=== PATIENT | female | born 1945 | race Caucasian/White ===

== ENCOUNTER 2019-03-30 12:17 | Observation (INO) | payer MEDICARE ==
--- NOTE | 2019-03-30 12:27 | ERPHSYRPT ---
- History of Present Illness Time Seen by Provider: 03/30/19 12:20 Source: patient, EMS Exam Limitations: no limitations Physician History: 73 y/o obese white female resident of [facility] with h/o dm, copd, chf, cva and cadz presents via ems with hypotension, gross hematuria, and black diarrhea stools. upon arrival from ems, pt awake, alert and oriented and pleasant. complains only of back pain. pt denies cp, denies soa and denies of abd pain. pts sbp upon arrival here 110 and HR 90s. pt on daily iron supplementation Timing/Duration: today Severity: moderate Associated Symptoms: No nausea, No vomiting, No abdominal pain, No shortness of breath, No chest pain Allergies/Adverse Reactions: meperidine HCl [From [employer]] Adverse Reaction (Mild, Verified 03/30/19 12:37) DOESN'T WORK FOR ME Home Medications: Metoprolol Tartrate 50 mg [Lopressor 50 MG] 100 mg PO BID 10/11/12 [ History] Nitroglycerin 0.4 mg Tablet [Nitrostat 0.4 MG Tablet] 0.4 mg SL Q5MIN PRN MR X 3 05/15/13 [History] Famotidine [Pepcid] 40 mg PO BID 06/01/13 [History] Ferrous Sulfate 325 mg [Feosol 325 mg] 325 mg PO DAILY 06/17/15 [History] Fluticasone/Vilanterol [Breo Ellipta 100-25 Mcg INH] 1 each IH DAILY 06/17/15 [ History] Magnesium Oxide 400 mg [Mag-Ox 400] 400 mg PO BID 06/17/15 [History] Calcium No.1/D3/B6/FA/B12/Aloe [Vitamin D3-Aloe 1,000 Unit Tab] 1 ea DAILY 03/30 [History] Hx Tetanus, Diphtheria Vaccination/Date Given: No Hx Influenza Vaccination/Date Given: Yes Hx Pneumococcal Vaccination/Date Given: No - Review of Systems Constitutional: No Symptoms Eyes: No Symptoms Ears, Nose, & Throat: No Symptoms Respiratory: No Symptoms Cardiac: No Symptoms Abdominal/Gastrointestinal: Diarrhea Genitourinary Symptoms: Hematuria Musculoskeletal: No Symptoms Skin: No Symptoms Neurological: No Symptoms Psychological: No Symptoms Endocrine: No Symptoms Hematologic/Lymphatic: No Symptoms Immunological/Allergic: No Symptoms All Other Systems: Reviewed and Negative - Past Medical History Pertinent Past Medical History: Yes Neurological History: Peripheral Neuropathy, Stroke ENT History: Cataracts Cardiac History: Congestive Heart Failure Respiratory History: CHF, COPD Endocrine Medical History: Diabetes Type II Musculoskeletal History: Arthritis GI Medical History: Other History: No Pertinent History Psycho-Social History: Anxiety, Depression Female Reproductive Disorders: No Pertinent History Other Medical History: anemia - Past Surgical History Past Surgical History: Yes Neuro Surgical History: No Pertinent History Cardiac: CABG, Cardiac Catheterization, Cardiac Stent Respiratory: No Pertinent History Gastrointestinal: Appendectomy, Cholecystectomy, Hemorrhoidectomy Genitourinary: No Pertinent History Musculoskeletal: Orthopedic Surgery Female Surgical History: Hysterectomy Other Surgical History: abd,aortic w/ mesh filter, femoral bipass,left arm and shoulder surgeries, - Social History Smoking Status: Former smoker How long have you smoked: 25 YEARS Exposure to second hand smoke: Yes Alcohol Use: None Drug Use: none Patient Lives Alone: No Significant Family History: heart disease, diabetes, hypertension - Nursing Vital Signs Nursing Vital Signs: Initial Vital Signs Temperature 98.0 F 03/30/19 12:19 Pulse Rate 110 H 03/30/19 12:19 Respiratory Rate 16 03/30/19 12:19 Blood Pressure 110/71 03/30/19 12:19 O2 Sat by Pulse Oximetry 97 03/30/19 12:19 Pain Scale Pain Intensity 6 - Physical Exam General Appearance: no apparent distress, alert, obese Eye Exam: PERRL/EOMI, eyes nml inspection Ears, Nose, Throat Exam: normal ENT inspection, moist mucous membranes Neck Exam: normal inspection, non-tender, supple, full range of motion Respiratory Exam: normal breath sounds, lungs clear, airway intact, No chest tenderness, No respiratory distress Cardiovascular Exam: regular rate/rhythm, normal heart sounds, normal peripheral pulses Gastrointestinal/Abdomen Exam: soft, normal bowel sounds, No tenderness, No guarding Pelvic Exam: not done Rectal Exam: not done Back Exam: normal inspection, normal range of motion, No CVA tenderness, No vertebral tenderness Extremity Exam: normal inspection, normal range of motion, pelvis stable Neurologic Exam: alert, oriented x 3, cooperative, 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 nml as tested Skin Exam: normal color, warm, dry Lymphatic Exam: No adenopathy SpO2 Interpretation: normal SpO2: 97 O2 Delivery: Room Air - Course Nursing assessment & vital signs reviewed: Yes EKG Interpreted by Me: RATE (95), A-fib, NORMAL AXIS, NORMAL INTERVALS, NORMAL QRS, Non-specific ST Changes, Other (when compared to ekg dated 06/17/15, new onset afib/flutter) Ordered Tests: Active Orders 24 hr Category Date Time Status Catheter-Clinton Eldridge STAT Care 03/30/19 12:34 Active EKG-ER Only STAT Care 03/30/19 12:34 Active IV Insertion STAT Care 03/30/19 12:34 Active ABDOMEN AND PELVIS W/0 CONTRAS [CT] Stat Exams 03/30/19 12:35 Completed CHEST 1 VIEW (PORTABLE) Stat Exams 03/30/19 12:34 Completed AMYLASE Stat Lab 03/30/19 12:52 Completed BLOOD CULTURE Stat Lab 03/30/19 12:45 Received CBC W DIFF Stat Lab 03/30/19 12:52 Completed CMP Stat Lab 03/30/19 12:52 Completed CULTURE,URINE Stat Lab 03/30/19 12:44 Received LIPASE Stat Lab 03/30/19 12:52 Completed Lactic Acid Stat Lab 03/30/19 12:40 Completed TROPONIN Q3H Lab 03/30/19 12:52 Completed TROPONIN Q3H Lab 03/30/19 15:45 Ordered TROPONIN Q3H Lab 03/30/19 18:45 Ordered TROPONIN Q3H Lab 03/30/19 21:45 Ordered TROPONIN Q3H Lab 03/31/19 00:45 Ordered UA W/RFX UR CULTURE Stat Lab 03/30/19 12:52 Completed Medication Summary Discontinued Medications Generic Name Dose Route Start Last Admin Trade Name Madonna PRN Reason Stop Dose Admin Sodium Chloride 1,000 mls @ 999 mls/hr 03/30/19 12:34 03/30/19 14:21 Sodium Chloride 0.9% 1000 Ml IV 03/30/19 13:34 Infused .Q1H1M STA Infusion Sodium Chloride Confirm 03/30/19 13:22 Sodium Chloride 0.9% 1000 Ml Administered 03/30/19 13:23 Dose 1,000 mls @ ud .ROUTE .STK-MED ONE Ceftriaxone Sodium/Dextrose 1 g in 50 mls @ 100 mls/hr 03/30/19 13:28 14:23 Rocephin 1 Gm-D5w 50 Ml Bag IV 03/30/19 13:57 Infused STAT STA Infusion Ceftriaxone Sodium/Dextrose Confirm 03/30/19 13:30 Rocephin 1 Gm-D5w 50 Ml Bag Administered 03/30/19 13:31 Dose 1 g in 50 mls @ ud IV .STK-MED ONE Ondansetron HCl 4 mg 03/30/19 12:34 03/30/19 13:25 Zofran 4 Mg/2 Ml Vial IV 03/30/19 12:35 4 mg STAT ONE Administration Ondansetron HCl Confirm 03/30/19 13:22 Zofran 4 Mg/2 Ml Vial Administered 03/30/19 13:23 Dose 4 mg .ROUTE .STK-MED ONE Lab/Rad Data: Laboratory Result Diagrams 03/30/19 12:52 03/30/19 12:52 Laboratory Results 03/30/19 03/30/19 03/30/19 Range/Units 12:52 12:52 12:52 WBC (4.0-10.5) K/mm3 RBC (4.1-5.4) M/mm3 Hgb (12.0-16.0) gm/dl Hct (35-47) % MCV (78-100) fl MCH (26-32) pg MCHC (32-36) g/dl RDW (11.5-14.0) % Plt Count (150-450) K/mm3 MPV (7.5-11.0) fl Gran % (36.0-66.0) % Eos # (Auto) (0-0.5) Absolute Lymphs (auto) (1.0-4.6) Absolute Monos (auto) (0.0-1.3) Lymphocytes % (24.0-44.0) % Monocytes % (0.0-12.0) % Eosinophils % (0.00-5.0) % Basophils % (0.0-0.4) % Absolute Granulocytes (1.4-6.9) Basophils # (0-0.4) Sodium (137-145) mmol/L Potassium (3.5-5.1) mmol/L Chloride (98-107) mmol/L Carbon Dioxide (22-30) mmol/L Anion Gap (5-15) MEQ/L BUN (7-17) mg/dL Creatinine (0.52-1.04) mg/dL Estimated GFR ML/MIN Glucose (74-106) mg/dL Lactic Acid (0.4-2.0) Calcium (8.4-10.2) mg/dL Total Bilirubin (0.2-1.3) mg/dL AST (14-36) U/L ALT (0-35) U/L Alkaline Phosphatase (38-126) U/L Troponin I < 0.012 (0.000-0.034) ng/mL Serum Total Protein (6.3-8.2) g/dL Albumin (3.5-5.0) g/dL Amylase (30-110) U/L Lipase (23-300) U/L Urine Color RED (YELLOW) Urine Appearance SLIGHTLY CLOUDY (CLEAR) Urine pH 8.0 (5-6) Ur Specific [employer] 1.004 (1.005-1.025) Urine Protein 100 (Negative) Urine Ketones NEGATIVE (NEGATIVE) Urine Blood MODERATE (0-5) Daniel/ul Urine Nitrite NEGATIVE (NEGATIVE) Urine Bilirubin NEGATIVE (NEGATIVE) Urine Urobilinogen NEGATIVE (0-1) mg/dL Ur Leukocyte Esterase MODERATE (NEGATIVE) Urine WBC (Auto) 26-50 (0-5) /HPF Urine RBC (Auto) 16-25 (0-2) /HPF U Epithel Cells (Auto) NONE (FEW) /HPF Urine Bacteria (Auto) MODERATE (NEGATIVE) /HPF Urine Culture Reflexed ORDERED SEPARATELY (NO) Urine Glucose 50 (NEGATIVE) mg/dL ABO Group O Rh Factor POSITIVE Antibody Screen NEGATIVE (NEGATIVE) 03/30/19 03/30/19 03/30/19 Range/Units 12:52 12:52 12:40 WBC 11.5 H (4.0-10.5) K/mm3 RBC 3.80 L (4.1-5.4) M/mm3 Hgb 11.3 L (12.0-16.0) gm/dl Hct 37.5 (35-47) % MCV 98.7 (78-100) fl MCH 29.7 (26-32) pg MCHC 30.1 L (32-36) g/dl RDW 13.0 (11.5-14.0) % Plt Count 193 (150-450) K/mm3 MPV 10.4 (7.5-11.0) fl Gran % 61.2 (36.0-66.0) % Eos # (Auto) 0.34 (0-0.5) Absolute Lymphs (auto) 2.74 (1.0-4.6) Absolute Monos (auto) 1.35 H (0.0-1.3) Lymphocytes % 23.8 L (24.0-44.0) % Monocytes % 11.7 (0.0-12.0) % Eosinophils % 3.0 (0.00-5.0) % Basophils % 0.3 (0.0-0.4) % Absolute Granulocytes 7.05 H (1.4-6.9) Basophils # 0.03 (0-0.4) Sodium 138 (137-145) mmol/L Potassium 4.0 (3.5-5.1) mmol/L Chloride 96 L (98-107) mmol/L Carbon Dioxide 37 H (22-30) mmol/L Anion Gap 8.5 (5-15) MEQ/L BUN 21 H (7-17) mg/dL Creatinine 1.04 (0.52-1.04) mg/dL Estimated GFR 55.2 ML/MIN Glucose 137 H (74-106) mg/dL Lactic Acid 1.0 (0.4-2.0) Calcium 8.6 (8.4-10.2) mg/dL Total Bilirubin 0.50 (0.2-1.3) mg/dL AST 16 (14-36) U/L ALT 9 (0-35) U/L Alkaline Phosphatase 57 (38-126) U/L Troponin I (0.000-0.034) ng/mL Serum Total Protein 6.6 (6.3-8.2) g/dL Albumin 3.3 L (3.5-5.0) g/dL Amylase 49 (30-110) U/L Lipase 57 (23-300) U/L Urine Color (YELLOW) Urine Appearance (CLEAR) Urine pH (5-6) Ur Specific [employer] (1.005-1.025) Urine Protein (Negative) Urine Ketones (NEGATIVE) Urine Blood (0-5) Daniel/ul Urine Nitrite (NEGATIVE) Urine Bilirubin (NEGATIVE) Urine Urobilinogen (0-1) mg/dL Ur Leukocyte Esterase (NEGATIVE) Urine WBC (Auto) (0-5) /HPF Urine RBC (Auto) (0-2) /HPF U Epithel Cells (Auto) (FEW) /HPF Urine Bacteria (Auto) (NEGATIVE) /HPF Urine Culture Reflexed (NO) Urine Glucose (NEGATIVE) mg/dL ABO Group Rh Factor Antibody Screen (NEGATIVE) - Progress Progress: improved, re-examined Progress Note: 03/30/19 14:24 cxr-no acute process ct abd/pelvis-?right lower lobe atelectasis vs infiltrate Counseled pt/family regarding: lab results, diagnosis, need for follow-up, rad results - Departure Departure Disposition: Observation Clinical Impression: Hematuria, Cystitis, Right pulmonary infiltrate on CXR, Diarrhea Condition: Stable Critical Care Time: No Referrals: JACLYN VAUGHN [Primary Care Provider] -
[2019-03-30] MEDS ORDERED: Sodium Chloride 0.9% 1000 ML 1,000 ML IV STA (12:34)
[2019-03-30] MEDS ORDERED: Zofran 4 MG/2 ML VIAL IV ONE (12:34)
[2019-03-30 13:02] LABS: Absolute Neutrophil Ct (ANC) 7.05 (1.4-6.9); BASOPHIL % 0.3 % (0.0-0.4); Basophil (Absolute #) 0.03 (0-0.4); Eosinophil (Absolute #) 0.34 (0-0.5); Hematocrit 37.5 % (35-47); Hemoglobin 11.3 gm/dl (12.0-16.0); Lymphocyte (Absolute #) 2.74 (1.0-4.6); Lymphocytes % 23.8 % (24.0-44.0); Mean Cell Volume 98.7 fl (78-100); Mean Corpuscular Hemoglobin 29.7 pg (26-32); Mean Corpuscular Hgb Concent. 30.1 g/dl (32-36); Mean Platelet Volume 10.4 fl (7.5-11.0); Monocyte (Absolute #) 1.35 (0.0-1.3); Monocytes % 11.7 % (0.0-12.0); Neutrophil % 61.2 % (36.0-66.0); Platelet Count 193 K/mm3 (150-450); White Blood Count 11.5 K/mm3 (4.0-10.5)
[2019-03-30 13:07] LABS: Appearance SLIGHTLY CLOUDY (CLEAR); Bacteria MODERATE /HPF (NEGATIVE); Bilirubin NEGATIVE (NEGATIVE); Blood MODERATE Ery/ul (0-5); Glucose 50 mg/dL (NEGATIVE); Ketones NEGATIVE (NEGATIVE); Leukocyte Esterase MODERATE (NEGATIVE); Nitrite NEGATIVE (NEGATIVE); Protein,Urine Dip 100 (Negative); Specific Gravity 1.004 (1.005-1.025); Urobilinogen NEGATIVE mg/dL (0-1); WBC 26-50 /HPF (0-5)
[2019-03-30] MEDS ORDERED: Sodium Chloride 0.9% 1000 ML 1,000 ML ONE (13:22)
[2019-03-30] MEDS ORDERED: Zofran 4 MG/2 ML VIAL ONE (13:22)
[2019-03-30] MEDS ORDERED: ROCEPHIN 1 Gm-D5w 50 ml Bag** 1 G/50 ML IVPB IV STA (13:28)
[2019-03-30] MEDS ORDERED: ROCEPHIN 1 Gm-D5w 50 ml Bag** 1 G/50 ML IVPB IV ONE (13:30)
[2019-03-30 13:35] LABS: ALBUMIN 3.3 g/dL (3.5-5.0); ANION GAP 8.5 MEQ/L (5-15); BILIRUBIN,TOTAL 0.5 mg/dL (0.2-1.3); Calcium 8.6 mg/dL (8.4-10.2); Creatinine 1 1.04 mg/dL (0.52-1.04); Total Protein 6.6 g/dL (6.3-8.2)
--- NOTE | 2019-03-30 13:38 | XRAY ---
Indication: Cough. Comparison: June 17, 2015. Portable chest less inflated without focal infiltrate, consolidation, or large effusion. Heart remains enlarged again with CABG surgery. Bony thorax intact again with osteopenia, degenerative changes, and left shoulder arthroplasty. Impression: Nonacute underinflated chest with chronic features.
--- NOTE | 2019-03-30 13:41 | XRAY ---
Indication: Hematuria. Black stools. Multiple contiguous axial images obtained through the abdomen and pelvis without contrast using renal [facility] Lung bases now demonstrates bibasilar atelectasis/scarring. Visualized right lower lobe demonstrates multifocal consolidations, possible organizing pneumonia versus subsegmental atelectasis. No large effusion. Heart is again enlarged. Abdomen/pelvis images slightly degraded by respiration artifact and beam artifact from patient's arms. No renal calculus or evidence for obstructive uropathy in either system. [place]ridge balloon catheter empties the urinary bladder. Noncontrasted stomach and bowel loops appear nonobstructed. Stable sigmoid diverticulosis without diverticulitis. No free fluid/air. Again calcified splenic granulomas, small left adrenal adenoma, and cholecystectomy clips. Remaining liver, pancreas, spleen, right adrenal glands, kidneys, and ureters appear unremarkable. There remains scattered arteriosclerotic disease. Minimally enlarging 5.2 cm distal fusiform AAA, previously 4.8 cm. AAA demonstrates stable aortobiiliac stent grafts. Also stable bifemoral bypass stent graft. Lack of IV contrast precludes further characterization. Osseous structures again demonstrates osteopenia, mild multilevel degenerative spondylosis, and minimal grade 1 L4 spondylolisthesis. Superior endplate of L3 demonstrates new minimal concave deformity with less than 25% height loss of uncertain chronicity. Impression: 1. Negative renal calculus or evidence for obstructive uropathy. New Eldridge balloon catheter emptying the bladder. 2. Minimally enlarging distal AAA again with aortobiiliac stent grafts and bifemoral bypass graft. Lack of IV contrast precludes further characterization. 3. New incompletely visualized right lower lobe multifocal consolidations. Rule out organizing pneumonia versus subsegmental atelectasis. 4. New L3 superior endplate fracture of uncertain chronicity. 5. Stable cardiomegaly, sigmoid diverticulosis, left adrenal adenoma, chronic bony findings, and evidence for old granulomatous disease.
[2019-03-30 13:50] LABS: ABO TYPING O; Antibody Screen NEGATIVE (NEGATIVE); RH TYPING POSITIVE
[2019-03-30] MEDS ORDERED: TYLENOL 325 MG PO PRN (16:20)
[2019-03-30] MEDS ORDERED: Zofran 4 MG/2 ML VIAL IV PRN (16:20)
[2019-03-30] MEDS: Sodium Chloride 0.9% 1000 ML 1,000 ML IV SCH (18:49)
[2019-03-30] MEDS ORDERED: NORCO 5/325 MG PO PRN (23:47)
[2019-03-30] MEDS ORDERED: Aricept 10 MG ONE (23:54)
[2019-03-30] MEDS ORDERED: ZOCOR 20MG ONE (23:55)
[2019-03-30] MEDS: NEURONTIN 300 MG PO SCH (23:56)
[2019-03-30] MEDS: Aricept 10 MG PO SCH (23:56)
[2019-03-30] MEDS: MAG-OX 400 PO SCH (23:56)
[2019-03-30] MEDS: ZOCOR 20MG PO SCH (23:56)
[2019-03-30] MEDS: Pepcid 20 MG PO SCH (23:57)
[2019-03-31 05:25] LABS: Absolute Neutrophil Ct (ANC) 5.79 (1.4-6.9); BASOPHIL % 0.2 % (0.0-0.4); Basophil (Absolute #) 0.02 (0-0.4); Eosinophil % 3.3 % (0.00-5.0); Eosinophil (Absolute #) 0.32 (0-0.5); Hematocrit 40.1 % (35-47); Hemoglobin 11.6 gm/dl (12.0-16.0); Lymphocyte (Absolute #) 2.29 (1.0-4.6); Lymphocytes % 23.9 % (24.0-44.0); Mean Corpuscular Hemoglobin 29.2 pg (26-32); Mean Corpuscular Hgb Concent. 28.9 g/dl (32-36); Monocyte (Absolute #) 1.18 (0.0-1.3); Monocytes % 12.3 % (0.0-12.0); Neutrophil % 60.3 % (36.0-66.0); Platelet Count 168 K/mm3 (150-450); Red Blood Count 3.97 M/mm3 (4.1-5.4); Red Cell Distribution Width 13.1 % (11.5-14.0); White Blood Count 9.6 K/mm3 (4.0-10.5)
[2019-03-31 05:42] LABS: ALBUMIN 3.5 g/dL (3.5-5.0); ALKALINE PHOSPHATASE 58 U/L (38-126); ANION GAP 9.8 MEQ/L (5-15); BLOOD UREA NITROGEN 16 mg/dL (7-17); CHLORIDE 97 mmol/L (98-107); Calcium 8.9 mg/dL (8.4-10.2); Carbon Dioxide 38 mmol/L (22-30); Creatinine 1 0.93 mg/dL (0.52-1.04); Glucose 107 mg/dL (74-106); Potassium 3.9 mmol/L (3.5-5.1); SGOT/AST 23 U/L (14-36); SGPT/ALT 8 U/L (0-35); SODIUM 141 mmol/L (137-145); Total Protein 6.8 g/dL (6.3-8.2)
[2019-03-31] MEDS: Advair Hfa 115/21 Common canister IH SCH ×3 (07:14→19:03)
[2019-03-31] MEDS: DUONEB 0.5-3 MG/3 ml Neb IH SCH ×5 (07:14→22:53)
[2019-03-31] MEDS ORDERED: DUONEB 0.5-3 MG/3 ml Neb IH ONE (07:14)
[2019-03-31 08:01] LABS: Slide Review 1 YES
--- NOTE | 2019-03-31 09:32 | PCM.HP ---
History of Present Illness - Chief Complaint Chief Complaint: cystitis, uti, hematuria, right lower lobe infiltrate History of Present Illness: is a 73 year old female from [place] who was sent for evaluation secondary to hematuria, black stools and diarrhea. She does admit to having some cough and soreness in her chest, no diarrhea this morning. She is a poor historian and does not answer questions well. - Review of Systems Constitutional: No Fever Respiratory: Cough Abdominal/Gastrointestinal: Diarrhea Genitourinary Symptoms: Hematuria Skin: No Rash All Other Systems: Reviewed and Negative Medications & Allergies Home Medications: Home Medication List Metoprolol Tartrate 50 mg [Lopressor 50 MG] 100 mg PO BID 10/11/12 [ History Confirmed 03/30/19] Nitroglycerin 0.4 mg Tablet [Nitrostat 0.4 MG Tablet] 0.4 mg SL Q5MIN PRN MR X 3 05/15/13 [History Confirmed 03/30/19] Famotidine [Pepcid] 40 mg PO BID 06/01/13 [History Confirmed 03/30/19] Ferrous Sulfate 325 mg [Feosol 325 mg] 325 mg PO DAILY 06/17/15 [History Confirmed 03/30/19] Fluticasone/Vilanterol [Breo Ellipta 100-25 Mcg INH] 1 each IH DAILY 06/17/15 [ History Confirmed 03/30/19] Magnesium Oxide 400 mg [Mag-Ox 400] 400 mg PO BID 06/17/15 [History Confirmed 03/30/19] Gabapentin 300 mg PO TID #0 capsule 06/22/15 [Rx Confirmed 03/30/19] Acetaminophen 325 mg [Tylenol 325 mg] 650 mg PO Q4HPRN PRN 03/30/19 [ History Confirmed 03/30/19] Alprazolam 0.25 mg [xanAX 0.25 MG] 1 tablet PO DAILY 03/30/19 [History Confirmed 03/30/19] Amlodipine Besylate 5 mg [Norvasc 5 mg] 10 mg PO DAILY 03/30/19 [History Confirmed 03/30/19] Aspirin EC 81 mg [Ecotrin 81 mg] 81 mg PO DAILY 03/30/19 [History Confirmed 03/30/19] Atorvastatin Calcium [Lipitor 20MG Tablet] 20 mg PO QHS 03/30/19 [History Confirmed 03/30/19] Benazepril HCl 20 mg PO BID 03/30/19 [History Confirmed 03/30/19] Bisacodyl 10 mg [Dulcolax 10 MG SUPP] 10 mg RC DAILY PRN PRN 03/30/19 [ History Confirmed 03/30/19] Calcium Carbonate [Oyster Shell Calcium] 1,000 mg PO DAILY 03/30/19 [History Confirmed 03/30/19] Carboxymethylcellulose Sodium [Refresh Tears] 1 drop OP QID 03/30/19 [History Confirmed 03/30/19] Cetirizine HCl [Zyrtec] 10 mg PO DAILY 03/30/19 [History Confirmed 03/30/19] Cholecalciferol (Vitamin D3) [Vitamin D] 1 tab PO DAILY 03/30/19 [History Confirmed 03/30/19] Cyanocobalamin 1000 Mcg/ml [Cyanocobalamin B-12 1000 MCG/ML] 1,000 mcg IM WEEKLY 03/30/19 [History Confirmed 03/30/19] Dextrose [Glucose] 4 gm PO ACHS PRN 03/30/19 [History Confirmed 03/30/19] Docusate Sodium 100 mg [Colace 100 MG] 100 mg PO DAILY 03/30/19 [History Confirmed 03/30/19] Donepezil HCl 10 mg [Aricept 10 MG] 5 mg PO HS 03/30/19 [History Confirmed 03/30/19] Duloxetine HCl 30 mg [Cymbalta 30 MG Capsule] 1 cap PO DAILY 03/30/19 [ History Confirmed 03/30/19] Furosemide 40 mg [Lasix 40 MG] 40 mg PO QHS 03/30/19 [History Confirmed ] Furosemide 40 mg [Lasix 40 MG] 80 mg PO DAILY 03/30/19 [History Confirmed 03/30/19] Glucagon 1 mg [GlucaGen 1 MG] 1 mg IM ACHS PRN 03/30/19 [History Confirmed 03/30/19] Guaifenesin/Dextromethorphan [Robitussin Cough-Chest Dm Liq] 10 ml PO Q4H PRN PRN 03/30/19 [History Confirmed 03/30/19] Hydrocodone/Acetaminophen [Hydrocodone-Acetamin 5-325 mg] 1 tab PO Q4H PRN PRN 03/30/19 [History Confirmed 03/30/19] Insulin Aspart [NovoLOG Insulin] 10 units SQ TIDWMEALS 03/30/19 [History Confirmed 03/30/19] Insulin Detemir [Levemir] 50 unit SQ DAILY 03/30/19 [History Confirmed 03/30/19] Ipratropium/Albuterol Sulfate [Iprat-Albut 0.5-3(2.5) mg/3 ml] 3 ml IH Q4HWA [History Confirmed 03/30/19] Magnesium Hydroxide 30 ml [Milk of Magnesia 30 ml] 30 ml PO DAILY PRN PRN 03/30/19 [History Confirmed 03/30/19] Multivit-Min/Ferrous Fumarate [Multilex T-M Tablet] 15 mg PO DAILY 03/30/19 [ History Confirmed 03/30/19] Omeprazole 1 cap PO DAILY 03/30/19 [History Confirmed 03/30/19] Ondansetron ODT 4 MG [Zofran Odt 4 mg] 4 mg PO Q6H PRN PRN 03/30/19 [ History Confirmed 03/30/19] Polyethylene Glycol 3350 17 gm [Miralax Powder 17GM PACKET] 1 pack PO DAILY PRN PRN 03/30/19 [History Confirmed 03/30/19] Potassium Chloride 10 Meq Tab* [Klor Con 10 MEQ] 20 meq PO QHS 03/30/19 [ History Confirmed 03/30/19] Potassium Chloride 10 Meq Tab* [Klor Con 10 MEQ] 40 meq PO DAILY 03/30/19 [ History Confirmed 03/30/19] Risperidone 1 mg [Risperdal 1 MG] 0.5 mg PO DAILY 03/30/19 [History Confirmed 03/30/19] Sodium Phosphate,Schuyler-Dibasic [Fleet Enema] 1 enema RC DAILY PRN PRN 03/30/19 [ History Confirmed 03/30/19] Allergies/Adverse Reactions: Allergies Allergy/AdvReac Type Severity Reaction Status Date / Time meperidine HCl [From Demerol] AdvReac Mild DOESN'T Verified 03/30/19 12:37 WORK FOR [employer] - Past Medical History Past Medical History: Yes Neurological History: Dementia, Peripheral Neuropathy, Stroke ENT History: Cataracts Cardiac History: Congestive Heart Failure, Coronary Artery Disease, Deep Vein Thrombosis, High Cholesterol, Hypertension, Myocardial Infarction (DE) Respiratory History: CHF, COPD, Pneumonia Endocrine Medical History: Diabetes Type II Musculoskelatal History: Arthritis GI Medical History: Other History: No Pertinent History Pyscho-Social History: Anxiety, Depression Reproductive Disorders: No Pertinent History Comment: anemia - Female History Hx Last Menstrual Period: post Are you now?: No - Past Surgical History Past Surgical History: Yes Neuro Surgical History: No Pertinent History Cardiac History: CABG, Cardiac Catheterization, Cardiac Stent Respiratory Surgery: No Pertinent History GI Surgical History: Appendectomy, Cholecystectomy, Hemorrhoidectomy Genitourinary Surgical Hx: No Pertinent History Musculskeletal Surgical Hx: Orthopedic Surgery Female Surgical History: Hysterectomy Other Surgical History: abd,aortic w/ mesh filter, femoral bipass,left arm and shoulder surgeries, - Social History Smoking Status: Former smoker How long have you smoked: 25 YEARS Exposure to second hand smoke: Yes Alcohol: None Drug Use: none Significant Family History: heart disease, diabetes, hypertension - Physical Exam Vital Signs: Vital Signs - 24 hr Temp Pulse Resp BP Pulse Ox 03/31/19 07:44 98.0 F 92 H 18 110/67 96 03/31/19 07:19 70 18 96 03/31/19 07:09 96 03/31/19 03:34 98.3 F 101 H 22 124/58 96 03/31/19 00:00 97.9 F 78 18 95/55 95 03/30/19 20:00 97.7 F 80 16 106/61 95 03/30/19 16:40 98.1 F 94 H 18 104/56 94 L 03/30/19 16:20 98.1 F 94 H 18 104/56 94 L 03/30/19 15:22 98.8 F 85 106/60 97 03/30/19 14:35 97 03/30/19 12:35 97.2 F 03/30/19 12:19 98.0 F 110 H 16 110/71 97 Oxygen-Last 24 hours O2 Percentage 2 Liters = 28% O2 Percentage 2 Liters = 28% O2 Percentage 2 Liters = 28% O2 Percentage 2 Liters = 28% O2 Percentage 2 Liters = 28% Oxygen Flowrate (L/min)-RT 2 Oxygen Flowrate (L/min)-RT 2 General Appearance: no apparent distress, obese, other (head tilted to the side , resting tremor present) Respiratory Exam: crackles/rales, rhonchi Cardiovascular Exam: irregular Gastrointestinal/Abdomen Exam: soft, normal bowel sounds, No tenderness, No mass Extremity Exam: pedal edema, swelling Skin Exam: normal color, warm, dry, No rash Results - Labs Lab/Micro Results: Accuchecks Date 03/30/19 Time 21:00 Accucheck Value: 104 Lab Results-Last 24 Hours 03/30/19 03/30/19 03/30/19 Range/Units 12:40 12:52 12:52 WBC 11.5 H (4.0-10.5) K/mm3 RBC 3.80 L (4.1-5.4) M/mm3 Hgb 11.3 L (12.0-16.0) gm/dl Hct 37.5 (35-47) % MCV 98.7 (78-100) fl MCH 29.7 (26-32) pg MCHC 30.1 L (32-36) g/dl RDW 13.0 (11.5-14.0) % Plt Count 193 (150-450) K/mm3 MPV 10.4 (7.5-11.0) fl Gran % 61.2 (36.0-66.0) % Eos # (Auto) 0.34 (0-0.5) Absolute Lymphs (auto) 2.74 (1.0-4.6) Absolute Monos (auto) 1.35 H (0.0-1.3) Lymphocytes % 23.8 L (24.0-44.0) % Monocytes % 11.7 (0.0-12.0) % Eosinophils % 3.0 (0.00-5.0) % Basophils % 0.3 (0.0-0.4) % Absolute Granulocytes 7.05 H (1.4-6.9) Basophils # 0.03 (0-0.4) Sodium 138 (137-145) mmol/L Potassium 4.0 (3.5-5.1) mmol/L Chloride 96 L (98-107) mmol/L Carbon Dioxide 37 H (22-30) mmol/L Anion Gap 8.5 (5-15) MEQ/L BUN 21 H (7-17) mg/dL Creatinine 1.04 (0.52-1.04) mg/dL Estimated GFR 55.2 ML/MIN Glucose 137 H (74-106) mg/dL Hemoglobin A1c (4.5-6.0) % Lactic Acid 1.0 (0.4-2.0) Calcium 8.6 (8.4-10.2) mg/dL Total Bilirubin 0.50 (0.2-1.3) mg/dL AST 16 (14-36) U/L ALT 9 (0-35) U/L Alkaline Phosphatase 57 (38-126) U/L Troponin I (0.000-0.034) ng/mL Serum Total Protein 6.6 (6.3-8.2) g/dL Albumin 3.3 L (3.5-5.0) g/dL Amylase 49 (30-110) U/L Lipase 57 (23-300) U/L Urine Color (YELLOW) Urine Appearance (CLEAR) Urine pH (5-6) Ur Specific Yarnell (1.005-1.025) Urine Protein (Negative) Urine Ketones (NEGATIVE) Urine Blood (0-5) Daniel/ul Urine Nitrite (NEGATIVE) Urine Bilirubin (NEGATIVE) Urine Urobilinogen (0-1) mg/dL Ur Leukocyte Esterase (NEGATIVE) Urine WBC (Auto) (0-5) /HPF Urine RBC (Auto) (0-2) /HPF U Epithel Cells (Auto) (FEW) /HPF Urine Bacteria (Auto) (NEGATIVE) /HPF Urine Culture Reflexed (NO) Urine Glucose (NEGATIVE) mg/dL Slides for Path Review ABO Group Rh Factor Antibody Screen (NEGATIVE) 03/30/19 03/30/19 03/30/19 Range/Units 12:52 12:52 12:52 WBC (4.0-10.5) K/mm3 RBC (4.1-5.4) M/mm3 Hgb (12.0-16.0) gm/dl Hct (35-47) % MCV (78-100) fl MCH (26-32) pg MCHC (32-36) g/dl RDW (11.5-14.0) % Plt Count (150-450) K/mm3 MPV (7.5-11.0) fl Gran % (36.0-66.0) % Eos # (Auto) (0-0.5) Absolute Lymphs (auto) (1.0-4.6) Absolute Monos (auto) (0.0-1.3) Lymphocytes % (24.0-44.0) % Monocytes % (0.0-12.0) % Eosinophils % (0.00-5.0) % Basophils % (0.0-0.4) % Absolute Granulocytes (1.4-6.9) Basophils # (0-0.4) Sodium (137-145) mmol/L Potassium (3.5-5.1) mmol/L Chloride (98-107) mmol/L Carbon Dioxide (22-30) mmol/L Anion Gap (5-15) MEQ/L BUN (7-17) mg/dL Creatinine (0.52-1.04) mg/dL Estimated GFR ML/MIN Glucose (74-106) mg/dL Hemoglobin A1c (4.5-6.0) % Lactic Acid (0.4-2.0) Calcium (8.4-10.2) mg/dL Total Bilirubin (0.2-1.3) mg/dL AST (14-36) U/L ALT (0-35) U/L Alkaline Phosphatase (38-126) U/L Troponin I < 0.012 (0.000-0.034) ng/mL Serum Total Protein (6.3-8.2) g/dL Albumin (3.5-5.0) g/dL Amylase (30-110) U/L Lipase (23-300) U/L Urine Color RED (YELLOW) Urine Appearance SLIGHTLY CLOUDY (CLEAR) Urine pH 8.0 (5-6) Ur Specific Yarnell 1.004 (1.005-1.025) Urine Protein 100 (Negative) Urine Ketones NEGATIVE (NEGATIVE) Urine Blood MODERATE (0-5) Daniel/ul Urine Nitrite NEGATIVE (NEGATIVE) Urine Bilirubin NEGATIVE (NEGATIVE) Urine Urobilinogen NEGATIVE (0-1) mg/dL Ur Leukocyte Esterase MODERATE (NEGATIVE) Urine WBC (Auto) 26-50 (0-5) /HPF Urine RBC (Auto) 16-25 (0-2) /HPF U Epithel Cells (Auto) NONE (FEW) /HPF Urine Bacteria (Auto) MODERATE (NEGATIVE) /HPF Urine Culture Reflexed ORDERED SEPARATELY (NO) Urine Glucose 50 (NEGATIVE) mg/dL Slides for Path Review ABO Group O Rh Factor POSITIVE Antibody Screen NEGATIVE (NEGATIVE) 03/30/19 03/31/19 03/31/19 Range/Units 18:16 01:06 05:24 WBC 9.6 (4.0-10.5) K/mm3 RBC 3.97 L (4.1-5.4) M/mm3 Hgb 11.6 L (12.0-16.0) gm/dl Hct 40.1 (35-47) % MCV 101.0 H (78-100) fl MCH 29.2 (26-32) pg MCHC 28.9 L (32-36) g/dl RDW 13.1 (11.5-14.0) % Plt Count 168 (150-450) K/mm3 MPV 11.0 (7.5-11.0) fl Gran % 60.3 (36.0-66.0) % Eos # (Auto) 0.32 (0-0.5) Absolute Lymphs (auto) 2.29 (1.0-4.6) Absolute Monos (auto) 1.18 (0.0-1.3) Lymphocytes % 23.9 L (24.0-44.0) % Monocytes % 12.3 H (0.0-12.0) % Eosinophils % 3.3 (0.00-5.0) % Basophils % 0.2 (0.0-0.4) % Absolute Granulocytes 5.79 (1.4-6.9) Basophils # 0.02 (0-0.4) Sodium (137-145) mmol/L Potassium (3.5-5.1) mmol/L Chloride (98-107) mmol/L Carbon Dioxide (22-30) mmol/L Anion Gap (5-15) MEQ/L BUN (7-17) mg/dL Creatinine (0.52-1.04) mg/dL Estimated GFR ML/MIN Glucose (74-106) mg/dL Hemoglobin A1c 7.74 H (4.5-6.0) % Lactic Acid (0.4-2.0) Calcium (8.4-10.2) mg/dL Total Bilirubin (0.2-1.3) mg/dL AST (14-36) U/L ALT (0-35) U/L Alkaline Phosphatase (38-126) U/L Troponin I < 0.012 (0.000-0.034) ng/mL Serum Total Protein (6.3-8.2) g/dL Albumin (3.5-5.0) g/dL Amylase (30-110) U/L Lipase (23-300) U/L Urine Color (YELLOW) Urine Appearance (CLEAR) Urine pH (5-6) Ur Specific Yarnell (1.005-1.025) Urine Protein (Negative) Urine Ketones (NEGATIVE) Urine Blood (0-5) Daniel/ul Urine Nitrite (NEGATIVE) Urine Bilirubin (NEGATIVE) Urine Urobilinogen (0-1) mg/dL Ur Leukocyte Esterase (NEGATIVE) Urine WBC (Auto) (0-5) /HPF Urine RBC (Auto) (0-2) /HPF U Epithel Cells (Auto) (FEW) /HPF Urine Bacteria (Auto) (NEGATIVE) /HPF Urine Culture Reflexed (NO) Urine Glucose (NEGATIVE) mg/dL Slides for Path Review YES ABO Group Rh Factor Antibody Screen (NEGATIVE) 03/31/19 Range/Units 05:24 WBC (4.0-10.5) K/mm3 RBC (4.1-5.4) M/mm3 Hgb (12.0-16.0) gm/dl Hct (35-47) % MCV (78-100) fl MCH (26-32) pg MCHC (32-36) g/dl RDW (11.5-14.0) % Plt Count (150-450) K/mm3 MPV (7.5-11.0) fl Gran % (36.0-66.0) % Eos # (Auto) (0-0.5) Absolute Lymphs (auto) (1.0-4.6) Absolute Monos (auto) (0.0-1.3) Lymphocytes % (24.0-44.0) % Monocytes % (0.0-12.0) % Eosinophils % (0.00-5.0) % Basophils % (0.0-0.4) % Absolute Granulocytes (1.4-6.9) Basophils # (0-0.4) Sodium 141 (137-145) mmol/L Potassium 3.9 (3.5-5.1) mmol/L Chloride 97 L (98-107) mmol/L Carbon Dioxide 38 H (22-30) mmol/L Anion Gap 9.8 (5-15) MEQ/L BUN 16 (7-17) mg/dL Creatinine 0.93 (0.52-1.04) mg/dL Estimated GFR > 60.0 ML/MIN Glucose 107 H (74-106) mg/dL Hemoglobin A1c (4.5-6.0) % Lactic Acid (0.4-2.0) Calcium 8.9 (8.4-10.2) mg/dL Total Bilirubin 0.40 (0.2-1.3) mg/dL AST 23 (14-36) U/L ALT 8 (0-35) U/L Alkaline Phosphatase 58 (38-126) U/L Troponin I (0.000-0.034) ng/mL Serum Total Protein 6.8 (6.3-8.2) g/dL Albumin 3.5 (3.5-5.0) g/dL Amylase (30-110) U/L Lipase (23-300) U/L Urine Color (YELLOW) Urine Appearance (CLEAR) Urine pH (5-6) Ur Specific Yarnell (1.005-1.025) Urine Protein (Negative) Urine Ketones (NEGATIVE) Urine Blood (0-5) Daniel/ul Urine Nitrite (NEGATIVE) Urine Bilirubin (NEGATIVE) Urine Urobilinogen (0-1) mg/dL Ur Leukocyte Esterase (NEGATIVE) Urine WBC (Auto) (0-5) /HPF Urine RBC (Auto) (0-2) /HPF U Epithel Cells (Auto) (FEW) /HPF Urine Bacteria (Auto) (NEGATIVE) /HPF Urine Culture Reflexed (NO) Urine Glucose (NEGATIVE) mg/dL Slides for Path Review ABO Group Rh Factor Antibody Screen (NEGATIVE) Microbiology 03/30/19 12:44 Urine Culture - Preliminary Catherized GRAM NEGATIVE ID AND SENSITIVITY PENDING Accuchecks Date 03/30/19 Time 21:00 Accucheck Value: 104 - Radiology Impressions Radiology Exams & Impressions: Radiology Procedures Category Date Time Status ABDOMEN AND PELVIS W/0 CONTRAS [CT] Stat Exams 03/30/19 12:35 Completed CHEST 1 VIEW (PORTABLE) Stat Exams 03/30/19 12:34 Completed - Other Procedures and Tests Respiratory Therapy 03/31/19 07:09 Oxygen NASAL CANNULA 2 lpm 03/31/19 07:19 Respiratory Therapy Assessment DAILY Assessment/Plan (1) Atrial fibrillation Current Visit: Yes Status: Acute Assessment & Plan: start on low dose eliquis due to hematuria Code(s): I48.91 - UNSPECIFIED ATRIAL FIBRILLATION (2) CHF (congestive heart failure) Current Visit: Yes Status: Acute Assessment & Plan: appears stable currently Code(s): I50.9 - HEART FAILURE, UNSPECIFIED (3) Hematuria Current Visit: Yes Status: Acute Assessment & Plan: h/h stable currently, will start on low dose eliquis secondary to a fib. urine culture pending Code(s): R31.9 - HEMATURIA, UNSPECIFIED (4) Right pulmonary infiltrate on CXR Current Visit: Yes Status: Acute Assessment & Plan: on rocephin and stable currently Code(s): R91.8 - OTHER NONSPECIFIC ABNORMAL FINDING OF LUNG FIELD
[2019-03-31] MEDS: Pepcid 20 MG PO SCH ×2 (09:36→22:36)
[2019-03-31] MEDS: NEURONTIN 300 MG PO SCH ×3 (09:37→22:36)
[2019-03-31] MEDS: MAG-OX 400 PO SCH ×2 (09:37→22:36)
[2019-03-31] MEDS: ROCEPHIN 1 Gm-D5w 50 ml Bag** 1 G/50 ML IVPB IV SCH (09:37)
[2019-03-31] MEDS: ELIQUIS 2.5 MG TABLET PO SCH ×2 (10:29→22:36)
[2019-03-31] MEDS: Risperdal 1 MG PO SCH (10:32)
[2019-03-31] MEDS: Lopressor 50 MG PO SCH ×2 (10:32→22:46)
[2019-03-31] MEDS: Cymbalta 30 MG Capsule PO SCH (10:33)
[2019-03-31] MEDS: Colace 100 MG PO SCH (10:33)
[2019-03-31] MEDS: Klor Con 10 MEQ PO SCH (10:34)
[2019-03-31] MEDS: FEOSOL 325 MG PO SCH (10:35)
[2019-03-31] MEDS ORDERED: Lantus Insulin SQ SCH (11:00)
[2019-03-31] MEDS: Protonix 40MG Tablet PO SCH (11:15)
[2019-03-31] MEDS: xanAX 0.25 MG PO SCH (11:15)
[2019-03-31] MEDS: NovoLOG Insulin SQ SCH ×2 (11:58→17:02)
[2019-03-31] MEDS: Artificial Tears 15 ML OP SCH ×3 (13:00→23:35)
[2019-03-31] MEDS ORDERED: CARBOXYMETHYLCELLULOSE SODIUM OP SCH (13:00)
[2019-03-31] MEDS: Sodium Chloride 0.9% 1000 ML 1,000 ML IV SCH (14:34)
--- NOTE | 2019-03-31 15:32 | ECHO ---
DATE OF PROCEDURE: 03/31/2019 CLINICAL INFORMATION: Atrial fibrillation, congestive heart failure, history of coronary artery disease and coronary artery bypass surgery. The M-mode 2D, and Doppler echocardiogram including color flow Doppler shows sclerosis of the aortic valve which is trileaflet. The left ventricle is normal in size at 5.5 cm. There is no thrombus noted. The septal wall thickness is increased at 1.2 cm. The left ventricular posterior wall thickness is increased at 1.2 cm. There is moderate to severe left ventricular systolic dysfunction with an ejection fraction estimated at 20 to 25%. There is diffuse hypokinesis present. No thrombus is noted. The right ventricular systolic function is moderately decreased. The left atrium is severely dilated at 6.6 cm. The interatrial septum is intact. The right atrium is severely dilated. The aortic valve opens adequately. There is no aortic regurgitation present. There is mitral valvular calcification associated with mild mitral regurgitation. There is mild tricuspid regurgitation. The right ventricular systolic pressure is elevated at 44 mm of Mercury. The pulmonic valve is not well visualized. The aortic root is normal at 3.1 cm. There is no pericardial effusion present. IMPRESSION: 1) MODERATELY SEVERE DECREASE IN LEFT VENTRICULAR SYSTOLIC FUNCTION. 2) MILD CONCENTRIC LEFT VENTRICULAR HYPERTROPHY. 3) MILD MITRAL REGURGITATION. 4) MILD TRICUSPID REGURGITATION. 5) MILD PULMONARY HYPERTENSION. 6) SEVERELY DILATED LEFT ATRIUM. 7) THE PATIENT'S HEART RATE IS ELEVATED AT 140 BEATS/MINUTE.
[2019-03-31] MEDS ORDERED: Klor Con 10 MEQ PO SCH (22:00)
[2019-03-31] MEDS: Aricept 10 MG PO SCH (22:36)
[2019-03-31] MEDS: ZOCOR 20MG PO SCH (22:37)
[2019-04-01 05:07] LABS: Absolute Neutrophil Ct (ANC) 3.13 (1.4-6.9); BASOPHIL % 0.5 % (0.0-0.4); Basophil (Absolute #) 0.03 (0-0.4); Eosinophil (Absolute #) 0.25 (0-0.5); Hematocrit 35.8 % (35-47); Hemoglobin 10.6 gm/dl (12.0-16.0); Lymphocyte (Absolute #) 2.06 (1.0-4.6); Lymphocytes % 33.2 % (24.0-44.0); Mean Cell Volume 100.8 fl (78-100); Mean Corpuscular Hemoglobin 29.9 pg (26-32); Mean Corpuscular Hgb Concent. 29.6 g/dl (32-36); Mean Platelet Volume 10.9 fl (7.5-11.0); Monocyte (Absolute #) 0.74 (0.0-1.3); Monocytes % 11.9 % (0.0-12.0); Neutrophil % 50.4 % (36.0-66.0); Platelet Count 167 K/mm3 (150-450); Red Blood Count 3.55 M/mm3 (4.1-5.4); White Blood Count 6.2 K/mm3 (4.0-10.5)
[2019-04-01 05:26] LABS: ALBUMIN 3.4 g/dL (3.5-5.0); ALKALINE PHOSPHATASE 61 U/L (38-126); BLOOD UREA NITROGEN 15 mg/dL (7-17); CHLORIDE 99 mmol/L (98-107); Calcium 8.8 mg/dL (8.4-10.2); Carbon Dioxide 36 mmol/L (22-30); Creatinine 1 0.92 mg/dL (0.52-1.04); Glucose 155 mg/dL (74-106); MAGNESIUM 2.3 mg/dL (1.6-2.3); Potassium 4.6 mmol/L (3.5-5.1); SGOT/AST 15 U/L (14-36); SGPT/ALT 8 U/L (0-35); SODIUM 141 mmol/L (137-145); Total Protein 6.5 g/dL (6.3-8.2)
[2019-04-01] MEDS: DUONEB 0.5-3 MG/3 ml Neb IH SCH ×3 (05:57→11:47)
[2019-04-01] MEDS: Advair Hfa 115/21 Common canister IH SCH (07:10)
--- NOTE | 2019-04-01 08:46 | PCM.DS ---
Discharge Summary Date of Admission: 03/30/19 16:22 Admitting Physician: MONICA SANCHEZ MD Primary Care Provider: JOEL Allergies Allergies meperidine HCl [From Demerol] Adverse Reaction (Mild, Verified 03/30/19 12:37) DOESN'T WORK FOR [place] [facility] Summary - Hospital Course Hospital Course: patient arrived with c/o black diarrhea and hematuria, found to have pneumonia, uti and a fib. started on eliquis, hematuria resolved, has chronic foly. +urine culture for proteus, she is feeling well and requesting to go home today. tolerating po, no diarrhea since admission, oxygen sats are stable on home oxygen - Vitals & Intake/Output Vital Signs: Vital Signs Temperature 98.2 F 04/01/19 08:00 Pulse Rate 81 04/01/19 08:00 Respiratory Rate 18 04/01/19 08:00 Blood Pressure 103/61 04/01/19 08:00 O2 Sat by Pulse Oximetry 92 L 04/01/19 08:00 Oxygen-Last Documented O2 Percentage 2 Liters = 28% Intake & Output: Intake & Output 03/29/19 03/30/19 03/31/19 04/01/19 11:59 11:59 11:59 11:59 Intake Total 1420 2426 Output Total 2200 1500 Balance -780 926 Weight 107 kg - Lab Result Diagrams: 04/01/19 04:42 04/01/19 04:42 Lab Results-Last 24 Hrs: Accuchecks Date 03/31/19 Date 03/31/19 Date 03/31/19 Time 21:00 Time 16:30 Time 11:30 Accucheck Value: 180 Accucheck Value: 193 Accucheck Value: 179 Lab Results-Last 24 Hours 04/01/19 04/01/19 Range/Units 04:42 04:42 WBC 6.2 (4.0-10.5) K/mm3 RBC 3.55 L (4.1-5.4) M/mm3 Hgb 10.6 L (12.0-16.0) gm/dl Hct 35.8 (35-47) % MCV 100.8 H (78-100) fl MCH 29.9 (26-32) pg MCHC 29.6 L (32-36) g/dl RDW 13.0 (11.5-14.0) % Plt Count 167 (150-450) K/mm3 MPV 10.9 (7.5-11.0) fl Gran % 50.4 (36.0-66.0) % Eos # (Auto) 0.25 (0-0.5) Absolute Lymphs (auto) 2.06 (1.0-4.6) Absolute Monos (auto) 0.74 (0.0-1.3) Lymphocytes % 33.2 (24.0-44.0) % Monocytes % 11.9 (0.0-12.0) % Eosinophils % 4.0 (0.00-5.0) % Basophils % 0.5 (0.0-0.4) % Absolute Granulocytes 3.13 (1.4-6.9) Basophils # 0.03 (0-0.4) Sodium 141 (137-145) mmol/L Potassium 4.6 (3.5-5.1) mmol/L Chloride 99 (98-107) mmol/L Carbon Dioxide 36 H (22-30) mmol/L Anion Gap 10.0 (5-15) MEQ/L BUN 15 (7-17) mg/dL Creatinine 0.92 (0.52-1.04) mg/dL Estimated GFR > 60.0 ML/MIN Glucose 155 H (74-106) mg/dL Calcium 8.8 (8.4-10.2) mg/dL Magnesium 2.3 (1.6-2.3) mg/dL Total Bilirubin 0.40 (0.2-1.3) mg/dL AST 15 (14-36) U/L ALT 8 (0-35) U/L Alkaline Phosphatase 61 (38-126) U/L Serum Total Protein 6.5 (6.3-8.2) g/dL Albumin 3.4 L (3.5-5.0) g/dL Micro Results-Entire Visit: Microbiology 03/30/19 12:44 Urine Culture - Preliminary Catherized Proteus Mirabilis Accuchecks Date 03/31/19 Date 03/31/19 Date 03/31/19 Time 21:00 Time 16:30 Time 11:30 Accucheck Value: 180 Accucheck Value: 193 Accucheck Value: 179 - Radiology Exams Ordered Rad Exams-Entire Visit: Radiology Procedures Category Date Time Status ABDOMEN AND PELVIS W/0 CONTRAS [CT] Stat Exams 03/30/19 12:35 Completed CHEST 1 VIEW (PORTABLE) Stat Exams 03/30/19 12:34 Completed ECHO W/2D AND DOPPLER [US] Routine Exams 03/31/19 11:18 Draft - Procedures and Test Procedures and Tests throughout Hospitalization: Therapy Orders & Screens 03/31/19 07:09 Oxygen NASAL CANNULA 2 lpm Comment: Diagnosis: cystitis, uti, hematuria, right lower lobe infiltrate 03/31/19 07:19 Respiratory Therapy Assessment DAILY Comment: Diagnosis: cystitis, uti, hematuria, right lower lobe infiltrate Discharge Exam General Appearance: no apparent distress, obese Neurologic Exam: alert Respiratory Exam: rhonchi, No respiratory distress Cardiovascular Exam: regular rate/rhythm, normal heart sounds Gastrointestinal/Abdomen Exam: soft, No tenderness, No mass Final Diagnosis/Problem List - Final Discharge Diagnosis/Problem (1) Atrial fibrillation Current Visit: Yes Status: Acute Assessment & Plan: rate controlled, continue current meds, holding amlodipine and ede due to hypotension, currently on metoprolol and lasix, bp has still been low range Code(s): I48.91 - UNSPECIFIED ATRIAL FIBRILLATION (2) CHF (congestive heart failure) Current Visit: Yes Status: Acute Code(s): I50.9 - HEART FAILURE, UNSPECIFIED (3) Hematuria Current Visit: Yes Status: Acute Code(s): R31.9 - HEMATURIA, UNSPECIFIED (4) Right pulmonary infiltrate on CXR Current Visit: Yes Status: Acute Assessment & Plan: levaquin x 7 days Code(s): R91.8 - OTHER NONSPECIFIC ABNORMAL FINDING OF LUNG FIELD (5) UTI (urinary tract infection) Current Visit: Yes Status: Acute Assessment & Plan: proteus sens to levaquin Code(s): N39.0 - URINARY TRACT INFECTION, SITE NOT SPECIFIED (6) Diabetes mellitus Current Visit: No Status: Chronic Assessment & Plan: blood sugar has been well controlled on minimal insulin coverage so will reduce levemir and watch closely at [facility] Code(s): E11.9 - TYPE 2 DIABETES MELLITUS WITHOUT COMPLICATIONS - Discharge Disposition: Skilled Care @ [facility] Condition: Stable Prescriptions: New Apixaban [Eliquis 2.5 mg Tablet] 2.5 mg PO BID #60 tablet Levofloxacin [Levaquin] 250 mg PO DAILY #7 tablet Continue Metoprolol Tartrate 50 mg [Lopressor 50 MG] 100 mg PO BID Nitroglycerin 0.4 mg Tablet [Nitrostat 0.4 MG Tablet] 0.4 mg SL Q5MIN PRN MR X 3 Famotidine [Pepcid] 40 mg PO BID Ferrous Sulfate 325 mg [Feosol 325 mg] 325 mg PO DAILY Magnesium Oxide 400 mg [Mag-Ox 400] 400 mg PO BID Fluticasone/Vilanterol [Breo Ellipta 100-25 Mcg INH] 1 each IH DAILY Gabapentin 300 mg PO TID #0 capsule Polyethylene Glycol 3350 17 gm [Miralax Powder 17GM PACKET] 1 pack PO DAILY PRN PRN PRN Reason: Constipation Magnesium Hydroxide 30 ml [Milk of Magnesia 30 ml] 30 ml PO DAILY PRN PRN PRN Reason: Constipation Insulin Aspart [NovoLOG Insulin] 10 units SQ TIDWMEALS Carboxymethylcellulose Sodium [Refresh Tears] 1 drop OP QID Guaifenesin/Dextromethorphan [Robitussin Cough-Chest Dm Liq] 10 ml PO Q4H PRN PRN PRN Reason: Cough Acetaminophen 325 mg [Tylenol 325 mg] 650 mg PO Q4HPRN PRN PRN Reason: Pain And/Or Fever Ondansetron ODT 4 MG [Zofran Odt 4 mg] 4 mg PO Q6H PRN PRN PRN Reason: Nausea Alprazolam 0.25 mg [xanAX 0.25 MG] 1 tablet PO DAILY Aspirin EC 81 mg [Ecotrin 81 mg] 81 mg PO DAILY Donepezil HCl 10 mg [Aricept 10 MG] 5 mg PO HS Risperidone 1 mg [Risperdal 1 MG] 0.5 mg PO DAILY Potassium Chloride 10 Meq Tab* [Klor Con 10 MEQ] 20 meq PO QHS Potassium Chloride 10 Meq Tab* [Klor Con 10 MEQ] 40 meq PO DAILY Omeprazole 1 cap PO DAILY Multivit-Min/Ferrous Fumarate [Multilex T-M Tablet] 15 mg PO DAILY Furosemide 40 mg [Lasix 40 MG] 40 mg PO QHS Furosemide 40 mg [Lasix 40 MG] 80 mg PO DAILY Duloxetine HCl 30 mg [Cymbalta 30 MG Capsule] 1 cap PO DAILY Docusate Sodium 100 mg [Colace 100 MG] 100 mg PO DAILY Cyanocobalamin 1000 Mcg/ml [Cyanocobalamin B-12 1000 MCG/ML] 1,000 mcg IM WEEKLY Cetirizine HCl [Zyrtec] 10 mg PO DAILY Atorvastatin Calcium [Lipitor 20MG Tablet] 20 mg PO QHS Glucagon 1 mg [GlucaGen 1 MG] 1 mg IM ACHS PRN PRN Reason: LOW BLOOD SUGAR Dextrose [Glucose] 4 gm PO ACHS PRN PRN Reason: LOW BLOOD SUGAR Calcium Carbonate [Oyster Shell Calcium] 1,000 mg PO DAILY Cholecalciferol (Vitamin D3) [Vitamin D] 1 tab PO DAILY Sodium Phosphate,Mower-Dibasic [Fleet Enema] 1 enema RC DAILY PRN PRN PRN Reason: Constipation Bisacodyl 10 mg [Dulcolax 10 MG SUPP] 10 mg RC DAILY PRN PRN PRN Reason: Constipation Hydrocodone/Acetaminophen [Hydrocodone-Acetamin 5-325 mg] 1 tab PO Q4H PRN PRN PRN Reason: Pain Ipratropium/Albuterol Sulfate [Iprat-Albut 0.5-3(2.5) mg/3 ml] 3 ml IH Q4HWA Changed Insulin Detemir [Levemir] 25 unit SQ DAILY #1 vial Discontinued Benazepril HCl 20 mg PO BID Amlodipine Besylate 5 mg [Norvasc 5 mg] 10 mg PO DAILY Follow up with: JACLYN VAUGHN [Primary Care Provider] - 1 Week
[2019-04-01] MEDS: NovoLOG Insulin SQ SCH (08:59)
[2019-04-01] MEDS: Cymbalta 30 MG Capsule PO SCH (09:51)
[2019-04-01] MEDS: ROCEPHIN 1 Gm-D5w 50 ml Bag** 1 G/50 ML IVPB IV SCH (09:51)
[2019-04-01] MEDS: NEURONTIN 300 MG PO SCH (09:52)
[2019-04-01] MEDS: Klor Con 10 MEQ PO SCH (09:54)
[2019-04-01] MEDS: Lopressor 50 MG PO SCH (09:55)
[2019-04-01] MEDS: Pepcid 20 MG PO SCH (09:56)
[2019-04-01] MEDS: MAG-OX 400 PO SCH (09:56)
[2019-04-01] MEDS: Protonix 40MG Tablet PO SCH (09:57)
[2019-04-01] MEDS: FEOSOL 325 MG PO SCH (09:57)
[2019-04-01] MEDS: xanAX 0.25 MG PO SCH (09:57)
[2019-04-01] MEDS: Risperdal 1 MG PO SCH (09:58)
[2019-04-01] MEDS: ELIQUIS 2.5 MG TABLET PO SCH (09:58)
[2019-04-01] MEDS: Colace 100 MG PO SCH (09:58)
[2019-04-01] MEDS ORDERED: OMEPRAZOLE PO SCH (10:00)
[2019-04-01] MEDS ORDERED: INSULIN DETEMIR 50 UNIT SQ SCH (10:00)
[2019-04-01] MEDS: Artificial Tears 15 ML OP SCH (10:00)
[2019-04-01 11:58] VITALS: BP 121/72; PULSE 80; O2SAT 95
== END 2019-04-01 12:15 ==
LOC: ED 12:17 → MED SURG 16:22
PROVIDERS: ADMIT Family Medicine; ATTEND Family Medicine
DX: I48.91 Unspecified atrial fibrillation (principal); I50.9 Heart failure, unspecified; R31.9 Hematuria, unspecified; R91.8 Other nonspecific abnormal finding of lung field; N39.0 Urinary tract infection, site not specified; E11.9 Type 2 diabetes mellitus without complications; J44.9 Chronic obstructive pulmonary disease, unspecified; R19.7 Diarrhea, unspecified; Z79.899 Other long term (current) drug therapy
CPT/HCPCS: 36415; 51702; 71045; 74176; 80053; 81001; 82150; 82962; 83036; 83605; 83690; 83735; 84484; 85025; 86850; 86900; 86901; 87040; 87077; 87086; 87186; 93005; 93306; 94640; 94760; 96360; 96365; 96374; 99285; G0378; J0696; J2405; A9270-GY